=== PATIENT | male | born 1980 | race Caucasian/White ===

== ENCOUNTER 2019-05-08 13:54 | Emergency (ER) | payer SELFPAY ==
[~2019-05-08] VITALS: Ht 160 cm; Wt 85.5 kg
[~2019-05-08 13:54] MED LIST: ACET500C5 PO
[2019-05-08 14:28] VITALS: BP 141/68; PULSE 59; RESP 16; Ht 160 cm; Wt 85.5 kg
--- NOTE | 2019-05-08 16:24 | ERD ---
ER Documentation Chief Complaint Chief Complaint chronic skin rash on back of head x 1 year, want to check it out HPI 38-year-old male presented to ED for a chronic skin lesion on the back of his head. Patient states it has been here over a year. Patient states that it itches and that he has not seen a provider for this yet. Patient denies any trauma to the area. Patient states that it does not come and go that it has been present the whole time. Patient states that he cannot tell if it is growing. Patient is presenting with vitals within normal limits. Patient denies any past medical history and states he has not seen a doctor in over 2 years. Patient denies any pain just states that he can feel it when he touches the back of his head. ROS All systems reviewed and are negative except as per history of present illness. Medications Home Meds Active Scripts Acetaminophen* (Tylophen*) 500 Mg Capsule, 1 CAP PO Q6H PRN for PAIN AND OR ELEVATED TEMP, #20 CAP Prov:KATARINA ALVAREZ PA-C 05/08/19 Allergies Allergies: Coded Allergies: No Known Allergy (Unverified , 05/08/19) PMhx/Soc Medical and Surgical Hx: pt denies Medical Hx, pt denies Surgical Hx Hx Alcohol Use: No Hx Substance Use: No Hx Tobacco Use: No Smoking Status: Never smoker FmHx Family History: No diabetes, No coronary disease, No other Physical Exam Vitals Vital Signs Date Temp Pulse Resp B/P (MAP) Pulse Ox O2 O2 Flow FiO2 Time Delivery Rate 05/08/19 97.1 59 16 141/68 99 14:28 (92) Physical Exam GENERAL: The patient is well-appearing, well-nourished, in no acute distress HEENT: Approximately 4 cm raised lesion on the right occipital lobe. There is no pain to palpation there is no discharge there is no fluctuant mass. NECK: C-spine is soft and supple. There is no meningismus. There is no cervical lymphadenopathy. CHEST: Clear to auscultation bilaterally. There are no rales, wheezes or rhonchi. HEART: Regular rate and rhythm. No murmurs, clicks, rubs or gallops. Procedures/MDM ED course: The patient was stable throughout the ED course. The patient and/or family informed of laboratory and diagnostic imaging results throughout the ED course. Medical decision makin-year-old male presented to ED for a lesion on the back of his head x1 year. Physical exam revealed a 4 cm raised brown scab-like lesion. No pain to palpation no discharge no fluctuant mass palpated. The lesion has an appearance similar to an HPV wart. The patient has no other symptoms no worsening head pain no confusion no neck stiffness no fever chills or night sweats. Patient denies trauma. At this time I have low suspicion for meningitis, trauma, cellulitis, traumatic brain injury. Advised patient that he needs to see a language therapist to have this biopsied. The patient is in agreement treatment plan and plans to follow-up with a language therapist. I provided the patient with several referrals to call and get an appointment. I advised the patient that if he experiences any worsening symptoms to return to ED immediately. All questions were answered upon discharge and patient agreement treatment plan. Prescription for home: Acetaminophen I have discussed with the patient proper use and common side effects to expert with the medication . I advised the patient/family to speak with the pharmacist dispensing the medication to be advised of any potential drug interactions with other medication or supplements they may be taking. Discharge: At this time, patient is stable for discharge and outpatient management. I have instructed the patient to follow-up with his\her primary care physician in 1 to 2 days. I have discussed with the patient the possibility of needing to see a specialist for further work-up and imaging studies if symptoms persist. I have instructed the patient to promptly return to the ER for any new or worsening symptoms including increased pain, fever, nausea, vomiting, weakness or LOC. The patient and\or family expressed understanding of and agreement with this plan. All questions were answered. Home care instructions were provided. Disclaimer: Inadvertent spelling and grammatical errors are likely due to EHR\dictation software use and do not reflect on the overall quality of patient care. Also, please note that the electronic time recorded on the note does not necessarily reflect the actual time of the patient encounter. Departure Diagnosis: Primary Impression: Rash and other nonspecific skin eruption Condition: Stable Patient Instructions: Self-Care for Skin Rashes Referrals: JAMISON ALATORRE MD,ROE SHEIKH,NARENDRA VARGAS,TIM Florence MD [facility] YOU HAVE RECEIVED A MEDICAL SCREENING EXAM AND THE RESULTS INDICATE THAT YOU DO NOT HAVE A CONDITION THAT REQUIRES URGENT TREATMENT IN THE EMERGENCY DEPARTMENT. FURTHER EVALUATION AND TREATMENT OF YOUR CONDITION CAN WAIT UNTIL YOU ARE SEEN IN YOUR DOCTORS OFFICE WITHIN THE NEXT 1-2 DAYS. IT IS YOUR RESPONSIBILITY TO MAKE AN APPOINTMENT FOR FOLOW-UP CARE. IF YOU HAVE A PRIMARY DOCTOR --you should call your primary doctor and schedule an appointment IF YOU DO NOT HAVE A PRIMARY DOCTOR YOU CAN CALL OUR PHYSICIAN REFERRAL HOTLINE AT IF YOU CAN NOT AFFORD TO SEE A PHYSICIAN YOU CAN CHOSE FROM THE FOLLOWING [facility] [address] [facility] [address] [facility] [facility] [address] [facility] [address] [facility] [address] [facility]. [facility] [address] [facility] YOU HAVE RECEIVED A MEDICAL SCREENING EXAM AND THE RESULTS INDICATE THAT YOU DO NOT HAVE A CONDITION THAT REQUIRES URGENT TREATMENT IN THE EMERGENCY DEPARTMENT. FURTHER EVALUATION AND TREATMENT OF YOUR CONDITION CAN WAIT UNTIL YOU ARE SEEN IN YOUR DOCTORS OFFICE WITHIN THE NEXT 1-2 DAYS. IT IS YOUR RESPONSIBILITY TO MAKE AN APPOINTMENT FOR FOLOW-UP CARE. IF YOU HAVE A PRIMARY DOCTOR --you should call your primary doctor and schedule and appointment IF YOU DO NOT HAVE A PRIMARY DOCTOR YOU CAN CALL OUR PHYSICIAN REFERRAL HOTLINE AT . IF YOU CAN NOT AFFORD TO SEE A PHYSICIAN YOU CAN CHOSE FROM THE FOLLOWING [facility] INSTITUTIONS: [facility] [address] [place] [address] [facility] [address] [place] [address] [facility] [address] [place] [address] Additional Instructions: Specialist:Usted tiene daniel condicin mdica que requiere que inocencia a un especialista dentro de los prximos 1-2 reno.POR FAVOR,CON LOPEZ SEGUIMIENTO DE PRIMARIA PHSICIAN refferal. SI USTED NO TIENE UN MDICO GENERAL Y / O USTED NO PUEDE PAGAR real a un mdico,los siguientes montague RECURSOS sido suministrado a usted. ES LOPEZ RESPONSABILIDAD PARA SER VISTOS POR EL ESPECIALISTA: KATARINA ALVAREZ PA-C May 08, 2019 16:24
== END 2019-05-08 16:20 | disposition home or self-care (01) ==
LOC: FTE 13:54
DX: R21 Rash and other nonspecific skin eruption (principal)
CPT/HCPCS: 99282